=== PATIENT | female | born 1990 | race American Indian/Alaskan Native ===

== ENCOUNTER 2022-10-17 20:09 | Emergency (ER) | payer OTHER ==
[~2022-10-17] VITALS: Ht 165.1 cm; Wt 57.6 kg
[2022-10-17] MEDS ORDERED: SYNTHROID75 MCG PO (21:09)
[2022-10-18] MEDS ORDERED: CEPHALEXIN500 MG PO (02:26)
== END 2022-10-18 02:49 ==
LOC: ER 20:09
DX: O99.891 Other specified diseases and conditions complicating pregnancy (principal); Z3A.24 24 weeks gestation of pregnancy; R30.0 Dysuria; Z87.440 Personal history of urinary (tract) infections